=== PATIENT | male | born 1945 | race Caucasian/White ===

== ENCOUNTER 2019-05-16 10:18 | Emergency (ER) | payer MEDICARE ==
[2019-05-16 10:41] VITALS: BP 143/72
--- NOTE | 2019-05-16 10:50 | UC ---
Ear Complaint HPI - HPI Summary HPI Summary: Pt presents with concern for cerumen impaction in left ear. Pt states he has this frequently an d thinks his left ear is "full of wax". - History of Current Complaint Chief Complaint: UCEar Stated Complaint: EAR CONCERN Time Seen by Provider: 05/16/19 10:47 Hx Obtained From: Patient Onset/Duration: Gradual Onset, Lasting Days, Still Present Severity Initially: Mild Severity Currently: Moderate Pain Intensity: 0 Associated Signs/Symptoms: Positive: Hearing Loss, Foreign Body Sensation - Allergies/Home Medications Allergies/Adverse Reactions: Allergies Allergy/AdvReac Type Severity Reaction Status Date / Time No Known Allergies Allergy Verified 05/16/19 10:40 PMH/Surg Hx/FS Hx/Imm Hx Previously Healthy: Yes Cardiovascular History: Cardiac Disease, Hypertension - Surgical History Surgical History: Yes Surgery Procedure, Year, and Place: L inguenal lymph node removed, L Knee replacement - Family History Known Family History: Positive: Cardiac Disease - Social History Occupation: Retired Lives: With Family Alcohol Use: None Substance Use Type: None Smoking Status (MU): Never Smoked Tobacco - Immunization History Most Recent Influenza Vaccination: 09/12 Vaccination Up to Date: Yes Review of Systems All Other Systems Reviewed And Are Negative: Yes Constitutional: Positive: Negative Skin: Positive: Negative Eyes: Positive: Negative ENT: Positive: Ear Ache, Other - hearing loss left Respiratory: Positive: Negative Cardiovascular: Positive: Negative Gastrointestinal: Positive: Negative Genitourinary: Positive: Negative Motor: Positive: Negative Neurovascular: Positive: Negative Musculoskeletal: Positive: Negative Neurological: Positive: Negative Psychological: Positive: Negative Is Patient Immunocompromised?: No Physical Exam Triage Information Reviewed: Yes Appearance: Well-Appearing Vital Signs: Initial Vital Signs Temp 98.6 F 05/16/19 10:36 Pulse 83 05/16/19 10:36 Resp 20 05/16/19 10:36 BP 143/72 05/16/19 10:36 Pulse Ox 95 05/16/19 10:36 Vital Signs Reviewed: Yes Eye Exam: Normal ENT: Positive: Other - cerumen left ear canal Dental Exam: Normal Neck exam: Normal Respiratory: Positive: No respiratory distress Musculoskeletal Exam: Normal Neurological Exam: Normal Psychological Exam: Normal Skin Exam: Normal Ear Complaint Course/Dx - Differential Dx/Diagnosis Differential Diagnosis/HQI/PQRI: Cerumen Impaction Provider Diagnosis: Impacted cerumen, left ear Discharge - Sign-Out/Discharge Documenting (check all that apply): Patient Departure All imaging exams completed and their final reports reviewed: No Studies - Discharge Plan Condition: Stable Disposition: HOME Patient Education Materials: Cerumen Impaction (ED) Referrals: Veto Rao MD [Primary Care Provider] - If Needed Additional Instructions: Please follow up with your PCP as needed. - Billing Disposition and Condition Condition: STABLE Disposition: Home
== END 2019-05-16 11:05 | disposition home or self-care (01) ==
LOC: UCCORT 10:18
DX: H61.22 Impacted cerumen, left ear (principal); I11.9 Hypertensive heart disease without heart failure; Z96.652 Presence of left artificial knee joint
CPT/HCPCS: 99202; G0463

== ENCOUNTER 2019-09-24 13:36 | Emergency (ER) | payer MEDICARE ==
--- NOTE | 2019-09-24 14:10 | UC ---
Throat Pain/Nasal Mikel HPI - HPI Summary HPI Summary: 74 yo male presents with fever. He tells me that last night he had 3-4 episodes of loose stools. This morning felt warm and took his temperature and was 100.7F. He took tylenol around 1100. Stools this AM were normal and not loose - no blood. He is eating and drinking well this morning. He endorses a scratchy throat and some post nasal drip. Was recently exposed to strep from his daughter. Denies rash, abdominal pain, n/v, dysuria, back pain, neck pain, headache, dizziness, SOB, chest pain. He has a history of T cell lymphoma, but has been "inactive" for about a year - History of Current Complaint Stated Complaint: FEVER Time Seen by Provider: 09/24/19 14:10 Hx Obtained From: Patient Onset/Duration: Sudden Onset Severity: Mild Pain Intensity: 3 Pain Scale Used: 0-10 Numeric - Allergies/Home Medications Allergies/Adverse Reactions: Allergies Allergy/AdvReac Type Severity Reaction Status Date / Time No Known Allergies Allergy Verified 09/24/19 14:11 Home Medications: Home Medications Acetaminophen [Tylenol Extra Strength] 1,000 mg PO TID PRN 09/24/19 [History Confirmed 09/24/19] Aspirin EC TAB* [Ecotrin EC Low Dose 81 MG*] 81 mg PO DAILY 09/24/19 [History Confirmed 09/24/19] Nabumetone TAB* [Relafen TAB*] 750 mg BID 09/24/19 [History Confirmed 09/24/19] [place]-3S/Dha/Epa/Fish Oil [Fish Oil 1,200 mg Softgel] 1 cap DAILY 09/24/19 [ History Confirmed 09/24/19] Potassium Chloride [Klor-Con] 1 tab DAILY 09/24/19 [History Confirmed 09/24/19] Valsartan/HCTZ 320/25(NF) [Diovan Hct 320/25(NF)] 1 tab DAILY 09/24/19 [History Confirmed 09/24/19] amLODIPine TAB* [Norvasc 5 mg TAB*] 10 mg DAILY 09/24/19 [History Confirmed ] dilTIAZem HCl [Diltiazem 24Hr ER] 1 tab DAILY 09/24/19 [History Confirmed ] PMH/Surg Hx/FS Hx/Imm Hx - Additional Past Medical History Additional PMH: Lymphoma RA Cardiovascular History: Hypertension - Surgical History Surgical History: Yes Surgery Procedure, Year, and Place: L inguenal lymph node removed, L Knee replacement - Family History Known Family History: Positive: Cardiac Disease - Social History Alcohol Use: None Substance Use Type: None Smoking Status (MU): Never Smoked Tobacco - Immunization History Most Recent Influenza Vaccination: 09/12 Vaccination Up to Date: Yes Review of Systems All Other Systems Reviewed And Are Negative: No Constitutional: Positive: Fever Skin: Positive: Negative Eyes: Positive: Negative ENT: Positive: Sore Throat Respiratory: Positive: Negative Cardiovascular: Positive: Negative Gastrointestinal: Positive: Diarrhea - resolved Genitourinary: Positive: Negative Motor: Positive: Negative Neurovascular: Positive: Negative Musculoskeletal: Positive: Negative Neurological: Positive: Negative Psychological: Positive: Negative Physical Exam - Summary Physical Exam Summary: GENERAL: NAD. WDWN. No pain distress. SKIN: No rashes, sores, or open wounds. HEENT: Head: AT/NC Eyes: PERRLA. EOM intact. Conjunctiva clear without inflammation or discharge. Ears: Hearing grossly normal. TMs intact, no bulging, erythema, or edema. Nose: Nasal mucosa pink and moist. NTTP maxillary and frontal sinus. Throat: Posterior oropharynx without exudates, erythema, or tonsillar enlargement. Uvula midline. NECK: Supple. Nontender. No lymphadenopathy. CHEST: CTAB. No r/r/w. No accessory muscle use. Breathing comfortably and in no distress. CV: RRR. Pulses intact. Brisk cap refill. ABDOMEN: Soft. NTTP. No distention or guarding. No CVA tenderness. Bowel sounds present NEURO: Alert. PSYCH: Age appropriate behavior. Triage Information Reviewed: Yes Vital Signs: Vital Signs: Temp Pulse Resp BP Pulse Ox 100.4 F 95 22 146/72 95 09/24/19 14:12 09/24/19 14:12 09/24/19 14:12 09/24/19 14:12 09/24/19 14:12 Laboratory Tests 09/24/19 14:29 Group A Strep Rapid Positive A Vital Signs Reviewed: Yes Throat Pain/Nasal Course/Dx - Course Course Of Treatment: POC Strep positive. Rx for amoxicillin - Differential Dx/Diagnosis Provider Diagnosis: Strep throat Discharge ED - Sign-Out/Discharge Documenting (check all that apply): Patient Departure All imaging exams completed and their final reports reviewed: No Studies - Discharge Plan Condition: Stable Disposition: HOME Prescriptions: Amoxicillin PO (*) [Amoxicillin 500 MG CAP*] 500 mg PO Q12H #20 cap Patient Education Materials: Strep Throat (ED) Referrals: Veto Rao MD [Primary Care Provider] - Additional Instructions: If you develop a fever, shortness of breath, chest pain, new or worsening symptoms - please call your PCP or go to the ED immediately. Your blood pressure was high at todays visit. Please see your primary provider within 4 weeks for recheck and re-evaluation. - Billing Disposition and Condition Condition: STABLE Disposition: Home
[2019-09-24 14:15] VITALS: BP 146/72
[2019-09-24 14:45] LABS: Influenza A Molecular NEGATIVE (Negative); Influenza B Molecular NEGATIVE (Negative)
== END 2019-09-24 14:47 | disposition home or self-care (01) ==
LOC: UCCORT 13:36
DX: J02.0 Streptococcal pharyngitis (principal); I10 Essential (primary) hypertension
CPT/HCPCS: 87651; 99212; G0463